=== PATIENT | female | born 1930 | race Hispanic/Latino ===

== ENCOUNTER → 2019-01-28 | Outpatient (CLI) | payer MEDICARE | END | disposition home or self-care (01) | LOC: OIH 09:09 | PROVIDERS: ATTEND Nurse Practitioner Adult Health | DX: R05 Cough (principal); I70.0 Atherosclerosis of aorta; M47.815 Spondylosis without myelopathy or radiculopathy, thoracolumbar region; M41.84 Other forms of scoliosis, thoracic region | CPT/HCPCS: 71046 ==